=== PATIENT | male | born 1980 | race Caucasian/White ===

== ENCOUNTER 2021-03-31 07:44 | Emergency (ER) | payer BC ==
[~2021-03-31] VITALS: Ht 182.9 cm; Wt 90.7 kg
[2021-03-31] MEDS ORDERED: ONDANSETRON ODT4 MG PO (07:51)
== END 2021-03-31 08:30 | disposition home or self-care (01) ==
LOC: ER 07:50
DX: R11.2 Nausea with vomiting, unspecified (principal); A05.9 Bacterial foodborne intoxication, unspecified
CPT/HCPCS: 99282